=== PATIENT | male | born 1995 | race Caucasian/White ===

== ENCOUNTER 2018-07-19 16:04 | Observation (INO) ==
[2018-07-19 17:35] LABS: Basophils # 0.1 K/mcL (0.0-0.2); Basophils % 1.3 %; Eosinophils % 11.2 %; Hematocrit 45.3 % (37.5-50.1); Immature Granulocytes % 0.4 % (0-4); Lymphocytes % 33.2 %; Mean Corpuscular HGB Conc 33.1 g/dL (31.6-35.5); Mean Corpuscular Hemoglobin 29.4 pg (28.0-33.3); Mean Corpuscular Volume 88.6 fL (83.0-100.0); Mean Platelet Volume 8.8 fL (9.4-12.4); Monocytes # 0.7 K/mcL (0.0-1.3); Monocytes % 7.3 %; Neutrophils # 4.2 K/mcL (1.6-8.9); Platelet Count 308 K/mcL (140-400); Red Blood Count 5.11 M/mcL (4.19-5.50); Red Cell Distribution Width 11.8 % (11.5-14.5); Segmented Neutrophils % 46.6 %
[2018-07-19 17:50] LABS: BUN/Creatinine Ratio 10 (6-26); Blood Urea Nitrogen 9 mg/dL (6-20); Calcium 9.3 mg/dL (8.6-10.3); Carbon Dioxide 27 mEq/L (23-29); Chloride 107 mEq/L (98-107); Ethanol < 10 mg/dL (Less than 10); Glucose 91 mg/dL (70-105); Osmolality,Calculated 286 (280-300); Potassium 4.4 mEq/L (3.5-5.1); Sodium 139 mEq/L (136-145); eGFR For Non-African Americans > 60 (> 60)
[2018-07-19 18:58] LABS: Bilirubin,Urine Negative (Negative); Blood,Urine Negative (Negative); Clarity,Urine Clear (Clear); Color,Urine Yellow (Yellow); Glucose,Urine (UA) Normal (Normal); Ketones,Urine Negative (Negative); Leukocyte Esterase,Urine Trace (Negative); Nitrite,Urine Negative (Negative); PH,Urine 6.5 pH Units (5.0-8.0); Protein,Urine Negative (Neg-Trace); Specific Gravity,Urine < 1.005 (1.010-1.025); Urobilinogen,Urine Normal (Normal)
[2018-07-19 19:00] LABS: Bacteria,Urine None Seen per hpf (None-Few); Hyaline Casts,Urine None Seen per lpf (None-Few); RBC,Urine 0-3 per hpf (0-3); Squamous Epithelial Cell,Urine Few per lpf (None-Few); WBC,Urine 0-3 per hpf (0-3)
[2018-07-19 19:08] LABS: Amphetamine Screen,Urine Positive ng/mL (Cutoff=1000); Barbiturate Screen,Urine Negative ng/mL (Cutoff=200); Benzodiazepines Screen,Urine Negative ng/mL (Cutoff=200); Cannabinoid Screen,Urine Positive ng/mL (Cutoff = 50); Cocaine Screen,Urine Negative ng/mL (Cutoff= 300); Opiate Screen,Urine Negative ng/mL (Cutoff=300); Phencyclidine Screen,Urine Negative ng/mL (Cutoff=25)
--- NOTE | 2018-07-19 20:05 | Emergency Department Note ---
Disposition Clinical Impression: Suicide gesture Disposition: Admitted As Inpatient Condition: Fair Time of Disposition: 20:58 Psych HPI - General Chief Complaint: ED Psychiatric Symptoms Stated Complaint: SI Time Seen by Provider: 07/19/18 16:28 Source: patient, family - History of Present Illness HPI Narrative: 23-year-old male since ED from crisis Center for evaluation of suicidal gestures. He was in a routine visit as follow-up for initiation of Abilify that was started one month ago. He was having trouble with excessive sedation so he wanted to discuss the possibility of coming off the medication or switching to something differently. He made comments to the counselor about wanting to get away from people and thoughts of burning down the house. They sent him to the ED for evaluation. He adamantly denies he has any thoughts of hurting himself or actually performing any of these actions. Denies any recent toxic ingestions. No recent medical complaints. Pt complaint: medical clearance request If medical clearance, reason: psychiatric condition Onset (ago): day(s) Duration: intermittent History of similar episodes: No Improves with: none Worsens with: none Context: recent drug abuse Alleged intoxication: No Associated Psychiatric Symptoms: other (suicidal gestures ) Associated symptoms: Denies: confusion, headache, shortness of breath Traumatic symptoms: denies traumatic injury Treatments prior to arrival: none - Related Data Allergies Allergy/AdvReac Type Severity Reaction Status Date / Time No Known Allergies Allergy Verified 07/19/18 16:14 All systems ED: reviewed and negative except as stated. Constitutional: Denies: fever, chills Cardiovascular: Denies: chest pain, palpitations Respiratory: Denies: cough, dyspnea Gastrointestinal: Denies: abdominal pain, nausea Genitourinary: Denies: urgency, dysuria Musculoskeletal: Denies: back pain, neck pain Neurological: Denies: headache, weakness Psychiatric: Denies: anxiety, depression, suicidal thoughts, homicidal thoughts Past Medical History - Past Medical History Attestation: Yes The following information was validated with the patient. Medical history: Reports: no medical history Psychiatric history: Reports: no psych history - Social History Smoking Status: Current every day smoker Smokeless Tobacco Status: No Alcohol use: Reports: none Drug use: Reports: none Physical Exam - General Limitations: no limitations General appearance: alert, in no apparent distress - Head Head exam: atraumatic, normocephalic - Eye Eye exam: Present: normal appearance - ENT ENT exam: normal exam, normal oropharynx - Neck Neck exam: Present: normal inspection - Chest Chest inspection: Present: normal inspection, symmetric chest wall rise - Respiratory Respiratory exam: Present: normal lung sounds bilaterally. Absent: respiratory distress - Cardiovascular Cardiovascular exam: Present: regular rate, normal rhythm - Abdominal Exam Abdominal exam: Present: soft, Non-Tender - Extremities Exam Extremities exam: Absent: tenderness - Back Exam Back exam: Present: CVA tenderness (R), CVA tenderness (L) - Neurological Exam Neurological exam: Present: alert, oriented X3 - Psychiatric Psychiatric exam: Present: normal affect, normal mood. Absent: agitated, suicidal ideation - Skin Skin exam: Present: warm, dry Course - Reevaluation(s) Reevaluation #1: Patient is medically cleared for psychiatric evaluation. Time: 20:16 Vital Signs Temperature 97.5 F L 07/19/18 16:11 Pulse Rate 82 07/19/18 16:11 Respiratory Rate 16 07/19/18 16:11 Blood Pressure 132/84 07/19/18 16:11 O2 Sat by Pulse Oximetry 100 07/19/18 16:11 Temperature 97.5 F L 07/19/18 16:11 Pulse Rate 82 07/19/18 16:11 Respiratory Rate 16 07/19/18 16:11 Blood Pressure 132/84 07/19/18 16:11 O2 Sat by Pulse Oximetry 100 07/19/18 16:11 Psych - Lab Data Result diagrams: 07/19/18 17:22 07/19/18 17:22 Lab Results 07/19/18 07/19/18 07/19/18 Range/Units 17:22 17:22 18:45 WBC 9.0 (4.3-11.1) K/mcL RBC 5.11 (4.19-5.50) M/mcL Hgb 15.0 (12.9-16.9) g/dL Hct 45.3 (37.5-50.1) % MCV 88.6 (83.0-100.0) fL MCH 29.4 (28.0-33.3) pg MCHC 33.1 (31.6-35.5) g/dL RDW 11.8 (11.5-14.5) % Plt Count 308 (140-400) K/mcL MPV 8.8 L (9.4-12.4) fL Immature Gran % 0.4 (0-4) % Seg Neutrophils % 46.6 % Lymphocytes % 33.2 % Monocytes % 7.3 % Eosinophils % 11.2 % Basophils % 1.3 % Neutrophils # 4.2 (1.6-8.9) K/mcL Lymphocytes # 3.0 (0.6-4.6) K/mcL Monocytes # 0.7 (0.0-1.3) K/mcL Eosinophils # 1.0 H (0.0-0.6) K/mcL Basophils # 0.1 (0.0-0.2) K/mcL Sodium 139 (136-145) mEq/L Potassium 4.4 (3.5-5.1) mEq/L Chloride 107 (98-107) mEq/L Carbon Dioxide 27 (23-29) mEq/L BUN 9 (6-20) mg/dL Creatinine 0.88 (0.70-1.30) mg/dL Est GFR ( Amer) > 60 (> 60) Est GFR (Non-Af Amer) > 60 (> 60) BUN/Creatinine Ratio 10 (6-26) Glucose 91 (70-105) mg/dL Calculated Osmolality 286 (280-300) Calcium 9.3 (8.6-10.3) mg/dL Urine Color (Yellow) Urine Clarity (Clear) Urine pH (5.0-8.0) pH Units Ur Specific [place] (1.010-1.025) Urine Protein (Neg-Trace) mg/dL Urine Glucose (UA) (Normal) mg/dL Urine Ketones (Negative) mg/dL Urine Blood (Negative) Urine Nitrite (Negative) Urine Bilirubin (Negative) Urine Urobilinogen (Normal) mg/dL Ur Leukocyte Esterase (Negative) Urine Microscopic RBC (0-3) per hpf Urine Microscopic WBC (0-3) per hpf Ur Squamous Epith Cells (None-Few) per lpf Urine Bacteria (None-Few) per hpf Hyaline Casts (None-Few) per lpf Urine Opiates Screen Negative (Bimihb=387) ng/mL Ur Barbiturates Screen Negative (Wwgywf=485) ng/mL Ur Phencyclidine Scrn Negative (Cutoff=25) ng/mL Ur Amphetamines Screen Positive H (Floigs=9901) ng/mL U Benzodiazepines Scrn Negative (Xmctzf=837) ng/mL Urine Cocaine Screen Negative (Cutoff= 300) ng/mL U Marijuana (THC) Screen Positive H (Cutoff = 50) ng/mL Ur Drug Screen Interp See Below Ethyl Alcohol < 10 (Less than 10) mg/dL 07/19/18 Range/Units 18:45 WBC (4.3-11.1) K/mcL RBC (4.19-5.50) M/mcL Hgb (12.9-16.9) g/dL Hct (37.5-50.1) % MCV (83.0-100.0) fL MCH (28.0-33.3) pg MCHC (31.6-35.5) g/dL RDW (11.5-14.5) % Plt Count (140-400) K/mcL MPV (9.4-12.4) fL Immature Gran % (0-4) % Seg Neutrophils % % Lymphocytes % % Monocytes % % Eosinophils % % Basophils % % Neutrophils # (1.6-8.9) K/mcL Lymphocytes # (0.6-4.6) K/mcL Monocytes # (0.0-1.3) K/mcL Eosinophils # (0.0-0.6) K/mcL Basophils # (0.0-0.2) K/mcL Sodium (136-145) mEq/L Potassium (3.5-5.1) mEq/L Chloride (98-107) mEq/L Carbon Dioxide (23-29) mEq/L BUN (6-20) mg/dL Creatinine (0.70-1.30) mg/dL Est GFR ( Amer) (> 60) Est GFR (Non-Af Amer) (> 60) BUN/Creatinine Ratio (6-26) Glucose (70-105) mg/dL Calculated Osmolality (280-300) Calcium (8.6-10.3) mg/dL Urine Color Yellow (Yellow) Urine Clarity Clear (Clear) Urine pH 6.5 (5.0-8.0) pH Units Ur Specific [place] < 1.005 L (1.010-1.025) Urine Protein Negative (Neg-Trace) mg/dL Urine Glucose (UA) Normal (Normal) mg/dL Urine Ketones Negative (Negative) mg/dL Urine Blood Negative (Negative) Urine Nitrite Negative (Negative) Urine Bilirubin Negative (Negative) Urine Urobilinogen Normal (Normal) mg/dL Ur Leukocyte Esterase Trace H (Negative) Urine Microscopic RBC 0-3 (0-3) per hpf Urine Microscopic WBC 0-3 (0-3) per hpf Ur Squamous Epith Cells Few (None-Few) per lpf Urine Bacteria None Seen (None-Few) per hpf Hyaline Casts None Seen (None-Few) per lpf Urine Opiates Screen (Hyoyqd=140) ng/mL Ur Barbiturates Screen (Amrynh=733) ng/mL Ur Phencyclidine Scrn (Cutoff=25) ng/mL Ur Amphetamines Screen (Cwnnwb=5326) ng/mL U Benzodiazepines Scrn (Uionox=740) ng/mL Urine Cocaine Screen (Cutoff= 300) ng/mL U Marijuana (THC) Screen (Cutoff = 50) ng/mL Ur Drug Screen Interp Ethyl Alcohol (Less than 10) mg/dL Psychiatric Medical Clearance - Medical Clearance Checklist Medical History: No Social History Section defined Current Vitals: Last Vital Signs Temp 97.5 F L 07/19/18 16:11 Pulse 82 07/19/18 16:11 Resp 16 07/19/18 16:11 BP 132/84 07/19/18 16:11 Pulse Ox 100 07/19/18 16:11 Psychiatric Lab Panel: Drug Levels and Toxicity 07/19/18 07/19/18 17:22 18:45 Urine Opiates Screen Negative Ur Barbiturates Screen Negative Ur Phencyclidine Scrn Negative Ur Amphetamines Screen Positive H U Benzodiazepines Scrn Negative Urine Cocaine Screen Negative U Marijuana (THC) Screen Positive H Ethyl Alcohol < 10 Abnormal Labs: Abnormal lab results MPV 8.8 fL (9.4-12.4) L 07/19/18 17:22 Eosinophils # 1.0 K/mcL (0.0-0.6) H 07/19/18 17:22 Ur Specific [place] < 1.005 (1.010-1.025) L 07/19/18 18:45 Ur Leukocyte Esterase Trace (Negative) H 07/19/18 18:45 Ur Amphetamines Screen Positive ng/mL (Yxlglv=6520) H 07/19/18 18:45 U Marijuana (THC) Screen Positive ng/mL (Cutoff = 50) H 07/19/18 18:45 Statement of Medical Clearance: I have evaluated the patient, reviewed diagnostic information, and certify that the patient's medical condition is sufficiently stable that transfer to the psychiatric unit does not pose a significant risk of deterioration.
[2018-07-19] MEDS ORDERED: Mag Hydrox/Al Hydrox/Simeth 30 ML UDC PO PRN (22:28)
[2018-07-19] MEDS ORDERED: Haloperidol Lactate 5 MG/ML VIAL IM PRN (22:28)
[2018-07-19] MEDS ORDERED: *HR* LORazepam 2 MG/ML VIAL IM PRN (22:28)
[2018-07-19] MEDS ORDERED: Acetaminophen 325 MG TABLET PO PRN (22:28)
[2018-07-19] MEDS ORDERED: MOM Conc 10 ML UD.LIQ PO PRN (22:28)
[2018-07-19] MEDS ORDERED: hydrOXYzine pamoate 25 MG CAPSULE PO PRN (22:28)
[2018-07-19] MEDS ORDERED: *HR* LORazepam 1 MG TABLET PO PRN (22:28)
[2018-07-19] MEDS ORDERED: traZODone 50 MG TABLET PO PRN (22:28)
[2018-07-20 08:54] VITALS: BP 135/84
[2018-07-20] MEDS ORDERED: Nicotine 21 MG PATCH.TD24 TD SCH (09:15)
--- NOTE | 2018-07-20 16:18 | Discharge Summary ---
Date of Encounter: 07/20/18 Time of Encounter: 16:15 History of Present Illness Chief complaint: I want to go home Admitted From: Emergency Dept History of Present Illness: Mr. Ferguson is a 23 year old male ID the patient is a 23-year-old white male. The patient presented to the emergency room and while he requested to be admitted voluntary he was placed on a pink slip. Chief complaint I just want to go home [place] History of present illness the patient presents a rather complicated history and while in diagnosis of schizoaffective disorder was given at the time prior and outpatient notes were reviewed the patient presented with some obsessive thinking. Most notably ordering and arranging an obsession on the game chess this obsession arose from a dream that he had significant anxiety. While on the ayala he was somewhat intrusive and wanted to leave he was anxious and talked to his . The patient asked for recommendation for his medications rather than staying on the unit to try them out. He said I want to try Zoloft in the comfort of my home. There have been concerns about the patient but he reported that he may have ingested some stimulant that may have altered his mood. Patient was advised not to use marijuana other than as prescribed by [place] law. He was given information on the [place] medical marijuana information website. But the patient was interested in [facility] up [facility]. He is not quite ready to return to work but he feels that if he can get this under control. Past Med Surg Social Fam HX - Past Medical History Medical history: no medical history - Past Psychiatric History Psychiatric history: Reports: ADHD Family psychiatric history: Yes Family History of Suicide: None - Past Surgical History Surgical History: no surgical history - Social History Smoking Status: Current every day smoker Smokeless Tobacco Status: No Alcohol use: none Drug use: none Occupational status: previously employed Current living situation: Home - Independent Activity Level: Independent ambulation Recent Out of Country Travel Within the Last 8 Weeks: No Exposure or Possible Exposure to Illness During Travel: No - Family History Mother Adopted: [place]: stephanie avalos Family Member Ethnicity: Non- Living Status: Still Living Hx Family Cardiac Disorders: No Hx Family Respiratory Disorders: No Hx Family Cancer: No Hx Family GI Disorders: No Hx Family Genitourinary Disorders: No Hx Family Endocrine Disorder: No Hx Family Musculoskeletal Disorders: No Hx Family Neuromuscular Disorders: No Hx Family Neurologic Disorders: No Hx Family HEENT Disorders: No Hx Family Autoimmune Disorders: No Hx Family Reproductive Disorders: No Hx Family Psychosocial Disorders: Yes (bipolar) Hx Family Medical Disorders: No Medications - Discharge Medications ARIPiprazole [Abilify] 5 mg PO DAILY 07/19/18 [History] Allergy/AdvReac Type Severity Reaction Status Date / Time No Known Allergies Allergy Verified 07/19/18 16:14 Review of Systems Psychiatric: Reports: anxiety, mood swings, panic attacks Exam - HEENT Head exam IM: Present: atraumatic Eye exam IM: Present: EOMI, normal appearance, PERRL ENT exam IM: Present: normal exam - Neurological Neurological exam: Present: CN II-XII intact - Respiratory Respiratory exam IM: Present: CTAB - GI/Abdominal GI/Abdominal exam IM: Present: normal bowel sounds, soft. Absent: tenderness - Extremities Extremities exam IM: Present: full ROM - Skin Skin exam IM: Present: dry, warm - Constitutional Vitals: Temp Pulse Resp BP Pulse Ox 98.2 F 78 16 135/84 98 07/20/18 08:54 07/20/18 08:54 07/20/18 08:54 07/20/18 08:54 07/20/18 08:54 General appearance: age & developmentally appropriate, well-groomed, well- nourished - Musculoskeletal Gait: normal Station: relaxed Strength & Tone: normal for patient - Psychiatric Patient Orientation: Yes Person, Yes Time, Yes Place Level of alertness: Alert Behavior: calm, cooperative, distractible, impulsive, talkative Psychomotor activity: Increased Eye Contact: Maintains Eye Contact Mood Description: Euthymic/stable, Anxious Affect description: congruent with mood, full range Speech Volume: Normal Speech pattern: normal rate, normal rhythm, normal tone, fluent, spontaneous Language & Vocabulary: consistent with education Thought Process: Linear, Goal Oriented Thought Content: No Suicidal ideation, No Homicidal ideation, No Overt delusions , Yes Obsessive thoughts Perceptual Disturbances: No Auditory hallucinations, No Visual hallucinations Attention Span Ability: Capable of Focused Attention Memory Description: Grossly Intact Patient Reliability: Reliable Historian Fund of knowledge: Yes abstraction ability, Yes average, Yes aware of current events Intelligence Estimate: Average Judgment: Fair Insight: Partial Results - Drug Levels and Toxicology Drug Levels and Toxicology: Drug Levels and Toxicity 07/19/18 07/19/18 17:22 18:45 Urine Opiates Screen Negative Ur Barbiturates Screen Negative Ur Phencyclidine Scrn Negative Ur Amphetamines Screen Positive H U Benzodiazepines Scrn Negative Urine Cocaine Screen Negative U Marijuana (THC) Screen Positive H Ethyl Alcohol < 10 - Labs Labs: Laboratory Last Values WBC 9.0 K/mcL (4.3-11.1) 07/19/18 17:22 RBC 5.11 M/mcL (4.19-5.50) 07/19/18 17:22 Hgb 15.0 g/dL (12.9-16.9) 07/19/18 17:22 Hct 45.3 % (37.5-50.1) 07/19/18 17:22 MCV 88.6 fL (83.0-100.0) 07/19/18 17:22 MCH 29.4 pg (28.0-33.3) 07/19/18 17:22 MCHC 33.1 g/dL (31.6-35.5) 07/19/18 17:22 RDW 11.8 % (11.5-14.5) 07/19/18 17:22 Plt Count 308 K/mcL (140-400) 07/19/18 17:22 MPV 8.8 fL (9.4-12.4) L 07/19/18 17:22 Immature Gran % 0.4 % (0-4) 07/19/18 17:22 Seg Neutrophils % 46.6 % 07/19/18 17:22 Lymphocytes % 33.2 % 07/19/18 17:22 Monocytes % 7.3 % 07/19/18 17:22 Eosinophils % 11.2 % 07/19/18 17:22 Basophils % 1.3 % 07/19/18 17:22 Neutrophils # 4.2 K/mcL (1.6-8.9) 07/19/18 17:22 Lymphocytes # 3.0 K/mcL (0.6-4.6) 07/19/18 17:22 Monocytes # 0.7 K/mcL (0.0-1.3) 07/19/18 17:22 Eosinophils # 1.0 K/mcL (0.0-0.6) H 07/19/18 17:22 Basophils # 0.1 K/mcL (0.0-0.2) 07/19/18 17:22 Sodium 139 mEq/L (136-145) 07/19/18 17:22 Potassium 4.4 mEq/L (3.5-5.1) 07/19/18 17:22 Chloride 107 mEq/L (98-107) 07/19/18 17:22 Carbon Dioxide 27 mEq/L (23-29) 07/19/18 17:22 BUN 9 mg/dL (6-20) 07/19/18 17:22 Creatinine 0.88 mg/dL (0.70-1.30) 07/19/18 17:22 Est GFR ( Amer) > 60 (> 60) 07/19/18 17:22 Est GFR (Non-Af Amer) > 60 (> 60) 07/19/18 17:22 BUN/Creatinine Ratio 10 (6-26) 07/19/18 17:22 Glucose 91 mg/dL (70-105) 07/19/18 17:22 Calculated Osmolality 286 (280-300) 07/19/18 17:22 Calcium 9.3 mg/dL (8.6-10.3) 07/19/18 17:22 Urine Color Yellow (Yellow) 07/19/18 18:45 Urine Clarity Clear (Clear) 07/19/18 18:45 Urine pH 6.5 pH Units (5.0-8.0) 07/19/18 18:45 Ur Specific [place] < 1.005 (1.010-1.025) L 07/19/18 18:45 Urine Protein Negative mg/dL (Neg-Trace) 07/19/18 18:45 Urine Glucose (UA) Normal mg/dL (Normal) 07/19/18 18:45 Urine Ketones Negative mg/dL (Negative) 07/19/18 18:45 Urine Blood Negative (Negative) 07/19/18 18:45 Urine Nitrite Negative (Negative) 07/19/18 18:45 Urine Bilirubin Negative (Negative) 07/19/18 18:45 Urine Urobilinogen Normal mg/dL (Normal) 07/19/18 18:45 Ur Leukocyte Esterase Trace (Negative) H 07/19/18 18:45 Urine Microscopic RBC 0-3 per hpf (0-3) 07/19/18 18:45 Urine Microscopic WBC 0-3 per hpf (0-3) 18 18:45 Ur Squamous Epith Cells Few per lpf (None-Few) 07/19/18 18:45 Urine Bacteria None Seen per hpf (None-Few) 07/19/18 18:45 Hyaline Casts None Seen per lpf (None-Few) 07/19/18 18:45 Urine Opiates Screen Negative ng/mL (Keriwx=794) 07/19/18 18:45 Ur Barbiturates Screen Negative ng/mL (Zkkflo=999) 07/19/18 18:45 Ur Phencyclidine Scrn Negative ng/mL (Cutoff=25) 07/19/18 18:45 Ur Amphetamines Screen Positive ng/mL (Qgcepw=8021) H 07/19/18 18:45 U Benzodiazepines Scrn Negative ng/mL (Rlzmck=362) 07/19/18 18:45 Urine Cocaine Screen Negative ng/mL (Cutoff= 300) 07/19/18 18:45 U Marijuana (THC) Screen Positive ng/mL (Cutoff = 50) H 07/19/18 18:45 Ur Drug Screen Interp See Below 07/19/18 18:45 Ethyl Alcohol < 10 mg/dL (Less than 10) 07/19/18 17:22 Diagnosis - Discharge Diagnosis (1) Mixed obsessional thoughts and acts Status: Acute (2) Other stimulant abuse with stimulant-induced mood disorder Status: Acute Assessment and Plan - Patient/Caregiver Discharge Instructions Activity: resume usual activities as tolerated, return to work once cleared by outpatient provider Diet: regular diet Additional Instructions: avoid alcohol and drugs of abuse - Follow up Plan Follow up with: NONE,PCP [Primary Care Provider] - Functional capacity at discharge: independent ambulation Overall status at discharge: Stable Disposition: Home, Self-Care Provider Date of admission: 07/19/18 22:28 Primary care physician: PCP SILVERIO Discharging clinician: Elroy Nixon Hospital Course Hospital course: Mr. Ferguson is a 23 year old male Patient was unusual in his presentation. He was odd loquacious intrusive. He identified counting confessing ordering and arranging among some of his obsessions. He had a history of attention deficit disorder but was able to follow along with Conversations and be redirected. He reported that he was on Abilify 5 mg but found it too sedating. He wanted medication recommendations and I suggested Abilify 2.5 mg daily at bedtime and sertraline 50 mg every morning the patient's able to get this medicines inexpensively he has no insurance. Patient was in contact with his his contacted the unit and there were some concerns that the patient would do better on an outpatient basis. The patient did not have any suicidal ideation did not have any obie psychosis and appeared to have improvement in mood towards the time discharge. - Time Spent with Patient Total time spent providing and/or coordinating discharge services: Greater than 30 minutes Procedures - Procedures Procedures: Medication Management, Crisis Stabilization, Supportive Therapy, Group Therapy, Psychoeducational Therapy Quality - Multiple Antipsychotics Patient discharged on 2 or more antipsychotic medications: No
[2018-07-20] MEDS ORDERED: ARIPiprazole 5 MG TABLET PO SCH (21:00)
== END 2018-07-20 17:30 | disposition home or self-care (01) ==
LOC: 1ANU 16:04 → EMEROOARM 16:04 → 1ANU 22:54
PROVIDERS: ADMIT Psychiatry & Neurology Forensic Psychiatry; ATTEND Psychiatry & Neurology Forensic Psychiatry